=== PATIENT | male | born 1950 | race Caucasian/White ===

== ENCOUNTER 2019-03-11 05:40 | Inpatient (IN) | payer OTHER ==
[2019-03-10 16:44] LABS: HEMATOCRIT 51.1 % (42.0-54.0); HEMOGLOBIN 18.2 g/dL (13.5-17.5); MCH 32.2 pg (26.0-34.0); MCHC 35.6 g/dL (31.0-37.0); MCV 90.3 fL (80.0-100.0); MEAN PLATELET VOLUME 9.9 fL (7.4-10.4); RBC 5.66 10x6/uL (4.20-6.10); RDW 13.7 % (11.5-14.5); WBC 7.4 10x3/uL (4.8-10.8)
[2019-03-10 17:06] LABS: APTT 25.3 SECONDS (22.8-39.4); INR 1.01 (0.85-1.17); PROTIME 13.3 SECONDS (11.6-15.0)
[2019-03-10 17:27] LABS: ANION GAP 10.2 mmol/L (8-16); CALCIUM 8.4 mg/dL (8.5-10.1); CARBON DIOXIDE 29.7 mmol/L (21.0-32.0); CREATININE - SERUM 2.5 mg/dL (0.6-1.3)
[2019-03-10 17:29] LABS: POTASSIUM - SERUM 2.9 mmol/L (3.5-5.1)
[~2019-03-11] VITALS: Ht 175.3 cm; Wt 93.9 kg
[~2019-03-11 05:40] MED LIST: ASPIRIN EC81 M1 PO; ATIVAN1 MG PO; CARDIZEM60 MG PO; COUMADIN2.5 MG PO; COUMADIN5 MG PO; DILTIAZEM 24HR360 M4 PO
[2019-03-11 06:15] VITALS: BP 159/93; BMI 30.8
--- NOTE | 2019-03-11 09:11 | NUR ---
0845 - XRAY AT BEDSIDE FOR PCXR, DUONEB UPDRAFT INITIATED PER ANESTHESIA ORDERS
--- NOTE | 2019-03-11 12:45 | OP ---
PATIENT NAME: NITHIN RICH MEDICAL RECORD: [id number] :46 LOCATION:[facility] ADMISSION DATE: SURGEON: BACILIO FLOWER MD DATE OF OPERATION: 03/11/2019 SURGEON: Bacilio Flower MD ANESTHESIA: General anesthesia by Radha Danielson CRNA. DIAGNOSES: Elevated PSA of 4.1 with 23.4% free PSA. Bladder outlet obstruction. PROCEDURE: Cystoscopy, transrectal ultrasound and prostate biopsy. FINDINGS: Obstructive bilateral lateral lobes of the prostate. There are no bladder tumors. There are single ureteral orifices bilaterally. The patient has a right inguinal hernia. On transrectal ultrasound, he has 55 gram prostate with intraprostatic stones. SPECIMENS: Prostate biopsy cores. BLOOD LOSS: Minimal. CLINICAL HISTORY: This is a 68-year-old male with an elevated PSA of 4.1. He has also obstructive voiding symptoms. He has issues with a previous stroke for which he is on anticoagulation. This was held prior to the procedure. He is allergic to no medications. He was given Ancef loss prevention auditor to the OR. DESCRIPTION OF PROCEDURE: The patient was given IV sedation. However, he kept coughing and bucking and eventually in order to protect his airway, he had to be given general anesthetic. He was then placed into lithotomy position and prepped and draped. While he was coughing and bucking, we could notice a large right inguinal hernia bulging with each cough. Cystoscopy was performed using a 17-Yakut cystoscope. He has an obstructive prostate with long prostatic urethra from large lateral lobes. There was no median lobe. There was a somewhat elevated bladder neck. The bladder was then emptied through the cystoscope sheath and the scope was removed. We then introduced the transrectal ultrasound probe. Prostate size measurements were obtained. Prostate size was estimated at 55 grams. Sextant biopsies were obtained with at least 3 cores from each sextant. Once all the specimens were obtained, then the procedure was terminated. I will see the patient in followup next week to review the pathology results with him. TRANSINT:[id number] Voice Confirmation ID: [id number] DOCUMENT ID: [id number] BACILIO FLOWER MD at 1245 CC: [id number] DICTATION DATE: 03/11/19 0858 CUSTOMER SERVICE SECURITY OFFICER: 03/11/19 1217 [facility] [address] [place] [address]
[2019-03-11 13:33] LABS: APPEARANCE HAZY (CLEAR); BILIRUBIN NEGATIVE (NEGATIVE); COLOR PINK (YELLOW); GLUCOSE NEGATIVE (NEGATIVE); KETONE NEGATIVE (NEGATIVE); NITRITE NEGATIVE (NEGATIVE); PROTEIN 1+ mg/dL (NEGATIVE); SPECIFIC GRAVITY 1.015 (1.005-1.020); UROBILINOGEN NORMAL (NORMAL)
[2019-03-11 13:34] LABS: BACTERIA FEW /hpf (NEGATIVE); EPITHELIAL CELLS 0-5 /hpf (0-5); RED CELLS - URINE 25-50 /hpf (0-5)
--- NOTE | 2019-03-11 14:01 | NUR ---
1220 REPORT OF ELEVATED TEMP TO MARGARITO العراقي CRNA. BEDSIDE ASSESSMENT PER DULCE MARIA BARBOSA. LUNG AUSULTATED CLEAR. STATES SHE WILL INFORM DR. FLOWER OF PT.'S TEMPERATURE & O2 STATUS. Loren LOBATO R.N.
--- NOTE | 2019-03-11 14:04 | NUR ---
1245 BLOOD CULTURES DRAWN. TYLENOL 650MG PO. PT SHIVERING & SHAKING. Loren LOBATO R.N. 1315 PT CATHETERIZED FOR URINE CULTURE PER Thong HENDRICKSON R.N. RETURN OF 350ML OF URINE. Loren LOBATO R.N. 1330 AWAKE & ALERT. RESTING QUIETLY IN BED. ON O2/4L/NASAL CANNULA. NO LONGER SHAKING OR SHIVERING. Loren Martell.N.
--- NOTE | 2019-03-11 14:53 | NUR ---
1450 REPORT TO LOUIE RIVERA LPN, MED SURG. Eneida. CHERYLE Landin.
[2019-03-11 16:58] VITALS: BP 135/77
[2019-03-11 18:44] VITALS: BP 135/77; BMI 30.6
--- NOTE | 2019-03-11 19:00 | NUR ---
BEDSIDE REPORT RECEIVED AND CARE OF PT ASSUMED. PT LYING IN SUPINE POSITION WATCHING TV. IV TO RIGHT FA PATENT WITH ABX INFUSING. WILL MONITOR FOR NEEDS.
--- NOTE | 2019-03-11 19:15 | NUR ---
GAVE SANDWICH TRAY AND CHLORASEPTIC SPRAY TO KEEP AT BEDSIDE PER REQUEST.
--- NOTE | 2019-03-11 20:00 | NUR ---
CHANGED ALL BEDDING DUE TO PT SPILLING URINAL IN BED. POSITIONED IN BED FOR COMFORT.
--- NOTE | 2019-03-11 21:00 | NUR ---
PT REQUESTING WARM BLANKET.
[2019-03-11 21:18] VITALS: BP 125/86
--- NOTE | 2019-03-11 23:20 | NUR ---
PT REQUESTING HEAT TO BE TURNED UP.
--- NOTE | 2019-03-11 23:44 | NUR ---
PT REQUESTING HEAT TO BE TURNED DOWN.
[2019-03-12 01:14] VITALS: BP 146/82
[2019-03-12 06:06] VITALS: BP 148/70
[2019-03-12 08:48] VITALS: BP 152/88
--- NOTE | 2019-03-12 09:16 | NUR ---
HIGH RISK / IMPAIRED SKIN INTEGRITY -TURN/REPOSITION Q 2 HOURS (HOURLY REPOSITIONING IF UP IN CHAIR -FLOAT HEELS OFF MATTRESS/PILLOWS -DAILY AND NEEDED PERSONAL CARE, USING CALMOSEPTINE CREAM IF REDNESS IS NOTED DUE TO INCONTINENCE/MOISTURE -SKIN ASSESSMENT Q SHIFT -CONSULT WOUND CARE IF NON-BLANCHABLE REDNESS OVER BONY PROMINENCES IS NOTED
[2019-03-12 09:40] VITALS: Ht 175.3 cm; Wt 93.9 kg
[2019-03-12 09:48] LABS: ANION GAP 8.7 mmol/L (8-16); CALCIUM 8.1 mg/dL (8.5-10.1); CARBON DIOXIDE 30.2 mmol/L (21.0-32.0); CREATININE - SERUM 2.4 mg/dL (0.6-1.3)
[2019-03-12 09:52] LABS: POTASSIUM - SERUM 2.9 mmol/L (3.5-5.1)
[2019-03-12 09:59] LABS: BASOPHILS 0.2 % (0-2); EOSINOPHILS 0.2 % (0-7); HEMATOCRIT 44.8 % (42.0-54.0); HEMOGLOBIN 15.7 g/dL (13.5-17.5); IMMATURE GRANULOCYTES 0.3 % (0-5); LYMPHOCYTES 7.9 % (15-50); MCV 91.4 fL (80.0-100.0); MEAN PLATELET VOLUME 11.3 fL (7.4-10.4); MONOCYTES 5.4 % (2-11); PLATELET COUNT 257 10x3/uL (130-400); RDW 14.1 % (11.5-14.5)
[2019-03-12 10:00] LABS: WBC 18.8 10x3/uL (4.8-10.8)
[2019-03-12 12:45] LABS: ERYTHROCYTE SEDIMENTATION RATE 9 mm/hr (0-20)
[2019-03-12 12:48] VITALS: BP 149/81
--- NOTE | 2019-03-12 13:26 | MORECARE ---
CASE MANAGEMENT DISCHARGE SUMMARY PATIENT: NITHIN RICH UNIT: [id number] ADM DATE: 03/11/19 AGE: 68 : 48 SEX: M ROOM/BED: D.2219 AUTHOR: BETTIE BILL PHYSICIAN: REFERRING PHYSICIAN: MIRIAM FLOWER MD DATE OF SERVICE: 03/12/19 Discharge Plan Patient Name: NITHIN RICH [facility] [facility] 1950 Planned Disposition: Anticipated Discharge Date: Discharge Date: Expected LOS: Initial Reviewer: [email or web address] Initial Review Date: 03/11/2019 Generated: 03/12/19 2:25 pm Comments DCP- Discharge Planning Updated by [email or web address]: Carlene Crawford on 03/12/19 12:[address] [facility] SPOKE WITH EDITH, SHE WILL PUT HIM ON THE LIST. WE DO NOT NEED TO CALL DAILY THEY WILL CALL US Patient Name: NITHNI RICH Page [id number] at 1326 All edits/amendments must be made on the electronic document DICTATION DATE: 03/12/19 1325 VP STRATEGIC PLANNING: CARMELLA 03/12/19 1325 RPT#: [id number] DC DATE: STATUS: ADM IN [facility] [address] [place] [address] END OF REPORT
--- NOTE | 2019-03-12 14:05 | NUR ---
I have reviewed this patient and I concur with the Shift Assessment completed by the Licensed Practical Nurse today this shift.
[2019-03-12 14:10] LABS: CREATININE - URINE 53.8 mg/dL (30-125); PROTEIN - URINE 162.5 mg/dL (0.0-11.9)
[2019-03-12 14:17] LABS: APPEARANCE CLEAR (CLEAR); BILIRUBIN NEGATIVE (NEGATIVE); COLOR YELLOW (YELLOW); GLUCOSE NEGATIVE (NEGATIVE); KETONE SMALL mg/dL (NEGATIVE); NITRITE NEGATIVE (NEGATIVE); PROTEIN 2+ mg/dL (NEGATIVE); UROBILINOGEN NORMAL (NORMAL)
[2019-03-12 14:20] LABS: RED CELLS - URINE OCC /hpf (0-5)
[2019-03-12 14:21] LABS: AMORPHOUS SEDIMENT >1+ /lpf (NONE SEEN); EPITHELIAL CELLS NSEEN /hpf (0-5); WHITE CELLS - URINE NSEEN /hpf (NEGATIVE)
[2019-03-12 16:40] VITALS: BP 166/96
[2019-03-12 19:27] VITALS: BP 153/101
--- NOTE | 2019-03-12 19:30 | NUR ---
PT SITTING UP IN BED WITHOUT DISTRESS, AOX4. IV RIGHT HAND SL, FLUSHES EASILY. USING URINAL AT BEDSIDE. WALKER TO USE WHILE UP WITH ASSIST. PT SPILLED WATER ON FLOOR, SELF AND BED. CLEANED FLOOR, CHANGED LINENS, AND HELPED PT CHANGE GOWN. DENIES PAIN OR NEEDS. CL IN REACH, WILL CTM
[2019-03-13 04:00] VITALS: BP 130/87
[2019-03-13 06:59] LABS: POTASSIUM - SERUM 3.1 mmol/L (3.5-5.1); VANCOMYCIN - RANDOM 16.4 ug/mL (10.0-20.0)
--- NOTE | 2019-03-13 07:30 | NUR ---
AT BEDSIDE. PATIENT AWAKE AT THIS TIME. NO NEEDS AT THIS TIME. CL IN REACH. WCTM
--- NOTE | 2019-03-13 07:31 | NUR ---
PATIENT ASLEEP. LAYING ON RIGHT SIDE. CL IN REACH. WCTM
[2019-03-13 08:35] LABS: ALBUMIN 2.9 g/dL (3.4-5.0); ANION GAP 14.3 mmol/L (8-16); BILIRUBIN - TOTAL 0.63 mg/dL (0.2-1.3); CALCIUM 8.5 mg/dL (8.5-10.1); CARBON DIOXIDE 26.8 mmol/L (21.0-32.0); MAGNESIUM - SERUM 1.8 mg/dL (1.8-2.4); POTASSIUM - SERUM 3.1 mmol/L (3.5-5.1)
[2019-03-13 08:49] VITALS: BP 144/79
[2019-03-13 12:45] VITALS: BP 140/94
[2019-03-13 16:08] LABS: SPE - A/G RATIO 1.1 (0.7-1.7); SPE - ALPHA-1 GLOBULIN 0.2 g/dL (0.0-0.4); SPE - ALPHA-2 GLOBULIN 0.7 g/dL (0.4-1.0); SPE - GAMMA GLOBULIN 0.9 g/dL (0.4-1.8); SPE - M-SPIKE Not Observed g/dL (Not Observed); SPE - TOTAL PROTEIN 5.8 g/dL (6.0-8.5)
--- NOTE | 2019-03-17 08:53 | MORECARE ---
CASE MANAGEMENT DISCHARGE SUMMARY PATIENT: NITHIN RICH UNIT: [id number] ADM DATE: 03/11/19 AGE: 68 : 48 SEX: M ROOM/BED: D.2219 AUTHOR: BETTIE BILL PHYSICIAN: REFERRING PHYSICIAN: MIRIAM FLOWER MD DATE OF SERVICE: 03/17/19 Discharge Plan Patient Name: [facility]ITIHN [facility]ICH [facility] [facility] 1950 Planned Disposition: Anticipated Discharge Date: Discharge Date: 03/13/2019 Expected LOS: Initial Reviewer: [email or web address] Initial Review Date: 03/11/2019 Generated: 03/17/19 9:53 am Comments DCP- Discharge Planning Updated by [email or web address]: Carlene Crawford on 03/12/19 12:[address] [facility] SPOKE WITH EDITH, SHE WILL PUT HIM ON THE LIST. WE DO NOT NEED TO CALL DAILY THEY WILL CALL US Last DP export: 03/12/19 12:26 p Patient Name: NITHIN RICH Page [id number] at 0853 All edits/amendments must be made on the electronic document DICTATION DATE: 03/17/19852 RESTAURANT DELIVERY DRIVER: CARMELLA 03/17/19852 RPT#: [id number] DC DATE:03/13/19 STATUS: DIS IN [facility] [address] [place] [address] END OF REPORT
[2019-03-20 10:20] LABS: UPE RAND - ALBUMIN QNS (()); UPE RAND - ALPHA 1 GLOBULIN QNS (()); UPE RAND - ALPHA 2 GLOBULIN QNS (()); UPE RAND - BETA GLOBULIN QNS (()); UPE RAND - GAMMA GLOBULIN QNS (())
== END 2019-03-13 18:00 | disposition home or self-care (01) | DRG 722 ==
LOC: D.OPS 05:40 → D.PAN 07:30 → D.OPS 07:30 → D.MS 14:55 → D.OPS 18:59 → D.MS 19:00
PROVIDERS: Anesthesiology; Internal Medicine Nephrology; ADMIT Urology; ATTEND Urology
PROC: 0VB03ZX Excision of Prostate, Percutaneous Approach, Diagnostic (ICD-10-PCS; principal; 2019-03-11 07:30)
PROC: 0TJB8ZZ Inspection of Bladder, Via Natural or Artificial Opening Endoscopic (ICD-10-PCS; 2019-03-11 07:30)
DX: C61 Malignant neoplasm of prostate (principal); J69.0 Pneumonitis due to inhalation of food and vomit; N18.4 Chronic kidney disease, stage 4 (severe); N40.1 Benign prostatic hyperplasia with lower urinary tract symptoms; I12.9 Hypertensive chronic kidney disease with stage 1 through stage 4 chronic kidney disease, or unspecified chronic kidney disease; F43.10 Post-traumatic stress disorder, unspecified; M19.90 Unspecified osteoarthritis, unspecified site; E87.6 Hypokalemia; I73.9 Peripheral vascular disease, unspecified

== ENCOUNTER 2020-06-30 11:31 | Emergency (ER) | payer OTHER ==
[2019-03-12 09:40] VITALS: Ht 175.3 cm; Wt 77.3 kg
[~2020-06-30] VITALS: Ht 175.3 cm; Wt 77.3 kg
[2020-06-30 11:52] LABS: BASOPHILS 0.2 % (0-2); EOSINOPHILS 1.2 % (0-7); HEMATOCRIT 46.6 % (42.0-54.0); IMMATURE GRANULOCYTES 0.5 % (0-5); LYMPHOCYTE ABS# 1.47 10x3/uL (1.32-3.57); LYMPHOCYTES 16.9 % (15-50); MCH 30.7 pg (26.0-34.0); MCHC 34.3 g/dL (31.0-37.0); MCV 89.4 fL (80.0-100.0); MEAN PLATELET VOLUME 10.2 fL (7.4-10.4); MONOCYTES 8.6 % (2-11); NEUTROPHIL ABS# 6.31 10x3/uL (1.78-5.38); NEUTROPHILS 72.6 % (40-80); PLATELET COUNT 291 10x3/uL (130-400); RBC 5.21 10x6/uL (4.20-6.10); RDW 13.1 % (11.5-14.5); WBC 8.7 10x3/uL (4.8-10.8)
[2020-06-30 12:04] LABS: APTT 21.8 SECONDS (22.8-39.4); INR 1.16 (0.85-1.17); PROTIME 13.7 SECONDS (11.6-15.0)
[2020-06-30 12:10] LABS: CALC OSMOLALITY 286 mosm/kg (275-300); CARBON DIOXIDE 29.8 mmol/L (21.0-32.0); CHLORIDE - SERUM 103 mmol/L (98-107); CREATININE - SERUM 2.7 mg/dL (0.6-1.3); GLUCOSE 112 mg/dL (74-106); POTASSIUM - SERUM 3.2 mmol/L (3.5-5.1); SODIUM 138 mmol/L (136-145); UREA NITROGEN 40 mg/dL (7-18); eGFR NON AFRICAN AMERICAN 25 mL/min (90-120)
[2020-06-30 12:17] LABS: ALBUMIN 2.8 g/dL (3.4-5.0); ALKALINE PHOSPHATASE 79 U/L (30-120); ALT (SGPT) 41 U/L (10-68); BILIRUBIN - TOTAL 0.41 mg/dL (0.2-1.3); CKMB 2.1 U/L (0.0-3.6); CREATINE KINASE 35 UL (21-232); MAGNESIUM - SERUM 2.1 mg/dL (1.8-2.4); PROTEIN - SERUM 6.3 g/dL (6.4-8.2); THYROID STIMULATING HORMONE 5.38 uIU/mL (0.36-3.74); TROPONIN-I < 0.017 ng/mL (0.000-0.060)
[2020-06-30 14:07] VITALS: BP 150/117
== END 2020-06-30 14:09 | disposition home or self-care (01) ==
LOC: D.ER 11:31
PROVIDERS: Family Medicine
DX: R55 Syncope and collapse (principal); I48.91 Unspecified atrial fibrillation; I63.9 Cerebral infarction, unspecified; Z79.01 Long term (current) use of anticoagulants; N40.0 Benign prostatic hyperplasia without lower urinary tract symptoms; N18.9 Chronic kidney disease, unspecified; I12.9 Hypertensive chronic kidney disease with stage 1 through stage 4 chronic kidney disease, or unspecified chronic kidney disease